=== PATIENT | female | born 1985 | race Caucasian/White ===

== ENCOUNTER 2020-10-02 15:46 | Observation (INO) | payer OTHER, SELFPAY ==
[2020-10-02] VITALS (7 sets, daily range): BP systolic 125–143; BP diastolic 71–87; PULSE 90–97; BMI 32.3
--- NOTE | 2020-10-02 15:41 | PC.NURSE ---
Addendum entered by Merlin Garner RN 10/02/20 15:45: Pt sees Dr. Linda and EDC 12/02/20. Original Note: Pt ambulatory to ED. Reports is 32 wks gestation, /M7. States while grocery shopping today had a sudden onset of dizziness/near syncopal, describes as room spinning, super lightheaded . States went home and ate and drank, laid down, then began vomiting, then he slammed into my belly and states has not felt the baby move since that time. Denies vag bleeding or d/c. Note pt has bulge to umbilicus, states has a dx hernia. Pt's VS 147/92, 100%, 113 HR, 97.2 S temp, 18 RR. Call to [facility] in OB, states to bring the patient to them. Pt placed in wheelchair and to OB.
[2020-10-02 16:44] LABS: Basophils Percent Auto 0.2 % (0.2-1.2); Eosinophils Absolute Auto 0.2 K/mm3 (0-0.3); Eosinophils Percent Auto 1.4 % (0-4.4); Hemoglobin 10.6 g/dL (12.0-15.0); Immature Granulocyte Absolute 0.05 K/mm3 (0.00-0.031); Immature Granulocyte Percent A 0.5 % (0-0.5); Lymphocytes Absolute Auto 1.93 K/mm3 (0.9-3.2); Lymphocytes Percent Auto 18.4 % (18.3-44.2); Mean Corpuscular HGB Conc 33.1 g/dl (32-36); Mean Corpuscular Hemoglobin 28.9 pg (26-34); Mean Corpuscular Volume 87.2 fl (80-100); Mean Platelet Volume 9.7 fl (7.4-10.4); Monocytes Absolute Auto 0.7 K/mm3 (0.1-0.6); Monocytes Percent Auto 6.4 % (2.6-8.5); Neutrophils Absolute Auto 7.7 K/mm3 (1.3-6.7); Neutrophils Percent Auto 73.1 % (45.5-73.1); Platelet Count Result 194 k/mm3 (150-375); Red Blood Count 3.67 M/mm3 (4.2-5.4); Red Cell Distribution Width 13.5 % (11.5-14.5); White Blood Count 10.5 K/mm3 (4.5-10.0)
--- NOTE | 2020-10-02 16:53 | OBADM ---
This patient, Love Lui, admitted to the OB room OB Post 117 for observation. Patient/family oriented to hospital policies and general routines including ID bracelet, bed and alarms, visiting hours, pain management, procedures, bathroom and other care routines, personal items, smoking policy, room service/diet, and visiting hours. Patient/Family are encouraged to report perceived risks to care and to ask questions if they do not understand what they are told or what they should do.
[2020-10-02 16:54] LABS: Albumin Level 3.3 g/dL (3.5-5.1); Alkaline Phosphatase 99 U/L (38-126); Anion Gap 5 mmol/L (8-16); Aspartate Amino Transferase 17 U/L (14-36); Bilirubin,Total 0.3 mg/dL (0.2-1.3); Blood Urea Nitrogen 2 mg/dL (7-17); Carbon Dioxide 24 mmol/L (22-30); Chloride 108 mmol/L (98-107); Estimated Glomerular Filt Rate > 60; Glucose 102 mg/dL (65-105); Potassium 3.8 mmol/L (3.4-5.0); Sodium 137 mmol/L (137-145); Uric Acid 4.8 mg/dL (2.5-7.5)
[2020-10-02 16:58] LABS: Add Urine Microscopic? NO; Appearance Urine Clear (Clear); Bilirubin Urine Negative (Negative); Blood Urine Negative (Negative); Color Urine Colorless (Yellow); Glucose Urine UA Negative (Negative); Ketones Urine Negative (Negative); Leukocyte Esterase Ur Negative LEU/UL (Negative); Nitrate Urine Negative (Negative); Protein Urine Negative (Negative); Urobilinogen Urine Negative mg/dL (<2.0)
[2020-10-02 17:00] LABS: Specific Grav Ur 1.002 (1.001-1.035)
[2020-10-02 17:08] LABS: Creatinine Urine 11.9 mg/dL; Total Protein Urine Random 19 mg/dL
[2020-10-02 17:23] LABS: Alanine Aminotransferase < 6 U/L (4-35)
--- NOTE | 2020-10-06 07:44 | PM.OBTRLD ---
OB - Triage/Final Diagnosis Visit Information Comments/Additional reasons for admission: I have assessed the risk for this patient, Love Lui, and determined that she would benefit from observation care. Evaluation Laboratory results: Laboratory Tests 10/02/20 10/02/20 10/02/20 16:28 16:28 16:36 WBC RBC Hgb Hct MCV MCH MCHC RDW Plt Count MPV Immature Gran % (Auto) Neut % (Auto) Lymph % (Auto) [place] % (Auto) Eos % (Auto) Baso % (Auto) Lymph # (Auto) [place] # (Auto) Eos # (Auto) Baso # (Auto) Abs Immat Gran (auto) Absolute Neuts (auto) Absolute Nucleated RBC Nucleated RBC % Sodium 137 Potassium 3.8 Chloride 108 H Carbon Dioxide 24 Anion Gap 5 L BUN 2 L Creatinine 0.50 L Estim Creat Clear Calc Not Reportable Estimated GFR > 60 Glucose 102 Uric Acid 4.8 Calcium 9.0 Total Bilirubin 0.3 AST 17 ALT < 6 Alkaline Phosphatase 99 Total Protein 6.0 L Albumin 3.3 L Urine Color Colorless Urine Appearance Clear Urine pH 7.0 Ur Specific [place] 1.002 Urine Protein Negative Urine Glucose (UA) Negative Urine Ketones Negative Ur Blood (Man) Negative Urine Nitrate Negative Urine Bilirubin Negative Urine Urobilinogen Negative Leukocyte Esterase Rfl Negative U Random Total Protein 19 Urine Creatinine 11.9 Protein/Creat Ratio 2 1.60 H 10/02/20 16:36 WBC 10.5 H RBC 3.67 L Hgb 10.6 L Hct 32.0 L MCV 87.2 MCH 28.9 MCHC 33.1 RDW 13.5 Plt Count 194 MPV 9.7 Immature Gran % (Auto) 0.5 Neut % (Auto) 73.1 Lymph % (Auto) 18.4 [place] % (Auto) 6.4 Eos % (Auto) 1.4 Baso % (Auto) 0.2 Lymph # (Auto) 1.93 [place] # (Auto) 0.7 H Eos # (Auto) 0.2 Baso # (Auto) 0.0 Abs Immat Gran (auto) 0.05 H Absolute Neuts (auto) 7.7 H Absolute Nucleated RBC 0.0 Nucleated RBC % 0.0 Sodium Potassium Chloride Carbon Dioxide Anion Gap BUN Creatinine Estim Creat Clear Calc Estimated GFR Glucose Uric Acid Calcium Total Bilirubin AST ALT Alkaline Phosphatase Total Protein Albumin Urine Color Urine Appearance Urine pH Ur Specific [place] Urine Protein Urine Glucose (UA) Urine Ketones Ur Blood (Man) Urine Nitrate Urine Bilirubin Urine Urobilinogen Leukocyte Esterase Rfl U Random Total Protein Urine Creatinine Protein/Creat Ratio 2 Final Diagnosis (1) PIH ( induced hypertension): Code(s): O13.9 - Gestational [-induced] hypertension without significant proteinuria, unspecified trimester Status: Acute
== END 2020-10-02 17:50 | disposition home or self-care (01) ==
PROVIDERS: Advanced Practice Midwife; Admitting Provider Obstetrics & Gynecology; Visit Provider Obstetrics & Gynecology
DX: O13.3 Gestational [pregnancy-induced] hypertension without significant proteinuria, third trimester (principal); Z3A.31 31 weeks gestation of pregnancy
CPT/HCPCS: 36415; 80053; 81003; 82570; 84156; 84550; 85025; G0378; G0379

== ENCOUNTER 2020-10-03 18:50 | Outpatient (NON) | payer OTHER, SELFPAY ==
[2020-10-03 18:58] VITALS: BMI 32.3
[2020-10-03 19:28] LABS: Collection Time Urine 24 HOURS
[2020-10-03 19:34] LABS: Total Volume 24 Hour Urine 3500 ml
[2020-10-03 19:35] LABS: Patient Weight 194 Lbs
[2020-10-03 19:36] LABS: Creatinine Urine 15.5 mg/dL
[2020-10-03 19:40] LABS: Specific Gravity Ur 1.005
[2020-10-03 22:40] LABS: Total Protein Urine 24 Hr 210 mg/24hr (0-149); Total Protein Urine Random < 6.0 mg/dL (0.0-11.9)
== END 2020-10-03 18:51 | disposition home or self-care (01) ==
LOC: ANHLAB 18:53
PROVIDERS: Visit Provider Obstetrics & Gynecology
DX: O13.9 Gestational [pregnancy-induced] hypertension without significant proteinuria, unspecified trimester (principal); Z3A.00 Weeks of gestation of pregnancy not specified
CPT/HCPCS: 81050; 82575; 84156

== ENCOUNTER 2020-10-04 16:18 | Outpatient (RCR) | payer OTHER, SELFPAY ==
[2020-10-04 16:43] LABS: Hematocrit 32.3 % (37.0-47.0); Hemoglobin 10.9 g/dL (12.0-15.0)
[2020-10-04 17:33] LABS: HIV 1/2 Ab P24 Ag Result Negative (Negative)
[2020-10-05 06:35] LABS: Rapid Plasma Reagin Non-Reactive (NonReactive)
[2020-10-05] MEDS: RHO(D) IMMUNE GLOBULIN 300 MCG/2 ML SYRINGE IM (13:23)
== END 2021-01-02 23:59 | disposition home or self-care (01) ==
LOC: ANHLAB 16:18
PROVIDERS: Visit Provider Obstetrics & Gynecology
DX: Z11.4 Encounter for screening for human immunodeficiency virus [HIV] (principal); Z29.13 Encounter for prophylactic Rho(D) immune globulin; O36.0190 Maternal care for anti-D [Rh] antibodies, unspecified trimester, not applicable or unspecified; Z3A.00 Weeks of gestation of pregnancy not specified
CPT/HCPCS: 36415; 85014; 85018; 85461; 86592; 86703; 90384; 96372; G0432; J2790

== ENCOUNTER 2020-10-22 10:41 | Outpatient (CLI) | payer OTHER, SELFPAY ==
[2020-10-22] VITALS (9 sets, daily range): BP systolic 115–148; BP diastolic 79–98; PULSE 81–97
[2020-10-22] MEDS: BETAMETHASONE SOD PHOS/ACETATE 30 MG/5 ML VIAL 12 MG IM (11:25)
[2020-10-22 11:48] LABS: Basophils Percent Auto 0.2 % (0.2-1.2); Eosinophils Absolute Auto 0.1 K/mm3 (0-0.3); Eosinophils Percent Auto 1.5 % (0-4.4); Hematocrit 31.6 % (37.0-47.0); Hemoglobin 10.3 g/dL (12.0-15.0); Immature Granulocyte Absolute 0.05 K/mm3 (0.00-0.031); Immature Granulocyte Percent A 0.5 % (0-0.5); Lymphocytes Absolute Auto 1.93 K/mm3 (0.9-3.2); Lymphocytes Percent Auto 20.2 % (18.3-44.2); Mean Corpuscular HGB Conc 32.6 g/dl (32-36); Mean Corpuscular Hemoglobin 27.7 pg (26-34); Mean Corpuscular Volume 84.9 fl (80-100); Monocytes Absolute Auto 0.5 K/mm3 (0.1-0.6); Monocytes Percent Auto 5.4 % (2.6-8.5); Neutrophils Absolute Auto 6.9 K/mm3 (1.3-6.7); Neutrophils Percent Auto 72.2 % (45.5-73.1); Platelet Count Result 231 k/mm3 (150-375); Red Blood Count 3.72 M/mm3 (4.2-5.4); Red Cell Distribution Width 13.6 % (11.5-14.5); White Blood Count 9.6 K/mm3 (4.5-10.0)
[2020-10-22 11:49] LABS: Add Urine Microscopic? NO; Appearance Urine Clear (Clear); Bilirubin Urine Negative (Negative); Blood Urine Negative (Negative); Color Urine Colorless (Yellow); Glucose Urine UA Negative (Negative); Ketones Urine Negative (Negative); Leukocyte Esterase Ur Negative LEU/UL (NEGATIVE); Nitrate Urine Negative (Negative); Protein Urine Negative (Negative); Urobilinogen Urine Negative mg/dL (<2.0)
[2020-10-22 11:54] LABS: Albumin Level 3.3 g/dL (3.5-5.1); Alkaline Phosphatase 120 U/L (38-126); Anion Gap 3 mmol/L (8-16); Aspartate Amino Transferase 18 U/L (14-36); Bilirubin,Total 0.4 mg/dL (0.2-1.3); Blood Urea Nitrogen 3 mg/dL (7-17); Calcium 9.1 mg/dL (8.4-10.2); Carbon Dioxide 23 mmol/L (22-30); Chloride 111 mmol/L (98-107); Estimated Glomerular Filt Rate > 60; Glucose 99 mg/dL (65-105); Potassium 3.7 mmol/L (3.4-5.0); Sodium 137 mmol/L (137-145); Uric Acid 5.4 mg/dL (2.5-7.5)
[2020-10-22 12:15] LABS: Alanine Aminotransferase < 6 U/L (4-35)
[2020-10-22 12:16] LABS: Specific Grav Ur 1.002 (1.001-1.035)
[2020-10-22 12:24] LABS: Creatinine Urine 8.8 mg/dL; Total Protein Urine Random 14 mg/dL; Ur Ttl Prot Creatinine Ratio 1.59 mg/mg (0-0.20)
--- NOTE | 2020-10-22 13:05 | PC.NURSE ---
Dr. Linda on unit. Lab results, BPs and tracing reviewed. May D/C home if Tylenol relieves headache.
[2020-10-22] MEDS: ACETAMINOPHEN 500 MG TABLET 1000 MG PO (13:13)
== END 2020-10-22 13:50 | disposition home or self-care (01) ==
LOC: ANHOBOP 10:47 → ANHOBPP 10:52
PROVIDERS: Visit Provider Obstetrics & Gynecology
DX: O13.9 Gestational [pregnancy-induced] hypertension without significant proteinuria, unspecified trimester (principal); Z3A.00 Weeks of gestation of pregnancy not specified
CPT/HCPCS: 36415; 59025; 80053; 81003; 82570; 84156; 84550; 85025; 87086; 96372; 99199; A9270; J0702

== ENCOUNTER 2020-10-23 12:06 | Outpatient (CLI) | payer OTHER, SELFPAY ==
[2020-10-23] MEDS: BETAMETHASONE SOD PHOS/ACETATE 30 MG/5 ML VIAL 12 MG IM (12:26)
== END 2020-10-23 12:07 | disposition home or self-care (01) ==
LOC: ANHOBOP 12:15
PROVIDERS: Visit Provider Obstetrics & Gynecology
DX: O16.9 Unspecified maternal hypertension, unspecified trimester (principal); Z3A.00 Weeks of gestation of pregnancy not specified
CPT/HCPCS: 96372; J0702

== ENCOUNTER 2020-10-24 17:50 | Outpatient (NON) | payer OTHER, SELFPAY ==
[2020-10-24 18:12] VITALS: BMI 33.2
[2020-10-24 19:16] LABS: Collection Time Urine 24 HOURS
[2020-10-24 19:22] LABS: Patient Weight 199 Lbs; Total Volume 24 Hour Urine 6600 ml
[2020-10-24 19:23] LABS: Specific Gravity Ur 1.001; Total Volume 24 Hour Urine 6600 ml
[2020-10-24 19:28] LABS: Creatinine Clearance Urine 57.2 ml/min (75-125); Creatinine Urine 7.1 mg/dL
[2020-10-24 22:05] LABS: Total Protein Urine 24 Hr 396 mg/24hr (0-149); Total Protein Urine Random < 6.0 mg/dL (0.0-11.9)
== END 2020-10-24 17:51 | disposition home or self-care (01) ==
LOC: ANHOBOP 18:03
PROVIDERS: Visit Provider Obstetrics & Gynecology
DX: O13.9 Gestational [pregnancy-induced] hypertension without significant proteinuria, unspecified trimester (principal); Z3A.00 Weeks of gestation of pregnancy not specified
CPT/HCPCS: 81050; 82575; 84156

== ENCOUNTER 2020-10-29 11:19 | Outpatient (CLI) | payer OTHER, SELFPAY ==
[2020-10-29] VITALS (9 sets, daily range): BP systolic 134–151; BP diastolic 80–99; PULSE 89–107
[2020-10-29 12:15] LABS: Basophils Percent Auto 0.3 % (0.2-1.2); Eosinophils Absolute Auto 0.2 K/mm3 (0-0.3); Eosinophils Percent Auto 1.4 % (0-4.4); Hematocrit 35.3 % (37.0-47.0); Hemoglobin 11.2 g/dL (12.0-15.0); Immature Granulocyte Absolute 0.09 K/mm3 (0.00-0.031); Immature Granulocyte Percent A 0.8 % (0-0.5); Lymphocytes Absolute Auto 2.67 K/mm3 (0.9-3.2); Lymphocytes Percent Auto 23.2 % (18.3-44.2); Mean Corpuscular HGB Conc 31.7 g/dl (32-36); Mean Corpuscular Hemoglobin 26.9 pg (26-34); Mean Corpuscular Volume 84.9 fl (80-100); Mean Platelet Volume 9.9 fl (7.4-10.4); Monocytes Absolute Auto 0.7 K/mm3 (0.1-0.6); Monocytes Percent Auto 6.3 % (2.6-8.5); Neutrophils Absolute Auto 7.9 K/mm3 (1.3-6.7); Platelet Count Result 269 k/mm3 (150-375); Red Blood Count 4.16 M/mm3 (4.2-5.4); Red Cell Distribution Width 13.8 % (11.5-14.5); White Blood Count 11.5 K/mm3 (4.5-10.0)
[2020-10-29 12:16] LABS: Add Urine Microscopic? NO; Appearance Urine Clear (Clear); Bilirubin Urine Negative (Negative); Blood Urine Negative (Negative); Color Urine Colorless (Yellow); Glucose Urine UA Negative (Negative); Ketones Urine Negative (Negative); Leukocyte Esterase Ur Negative LEU/UL (NEGATIVE); Nitrate Urine Negative (Negative); Protein Urine Negative (Negative); Urobilinogen Urine Negative mg/dL (<2.0)
[2020-10-29 12:26] LABS: Alanine Aminotransferase 7 U/L (4-35); Albumin Level 3.5 g/dL (3.5-5.1); Alkaline Phosphatase 145 U/L (38-126); Anion Gap 8 mmol/L (8-16); Aspartate Amino Transferase 21 U/L (14-36); Bilirubin,Total 0.7 mg/dL (0.2-1.3); Blood Urea Nitrogen 3 mg/dL (7-17); Calcium 9.3 mg/dL (8.4-10.2); Carbon Dioxide 24 mmol/L (22-30); Chloride 105 mmol/L (98-107); Estimated Glomerular Filt Rate > 60; Glucose 109 mg/dL (65-105); Potassium 4.2 mmol/L (3.4-5.0); Sodium 137 mmol/L (137-145); Uric Acid 5.8 mg/dL (2.5-7.5)
[2020-10-29 12:33] LABS: Specific Grav Ur 1.002 (1.001-1.035)
[2020-10-29 13:05] LABS: Creatinine Urine 13.1 mg/dL; Total Protein Urine Random 15 mg/dL; Ur Ttl Prot Creatinine Ratio 1.15 mg/mg (0-0.20)
--- NOTE | 2020-10-29 13:38 | PC.NURSE ---
1337--Report to Rosalinda Jensen CNM re: v.s., lab results and reactive NST. Orders to DC home with instructions on when to return.
== END 2020-10-29 13:45 | disposition home or self-care (01) ==
LOC: ANHOBOP 11:24 → ANHOBPP 11:25
PROVIDERS: Advanced Practice Midwife; Visit Provider Obstetrics & Gynecology
DX: O13.9 Gestational [pregnancy-induced] hypertension without significant proteinuria, unspecified trimester (principal); Z3A.00 Weeks of gestation of pregnancy not specified
CPT/HCPCS: 36415; 59025; 80053; 81003; 82570; 84156; 84550; 85025; 87086; 99199

== ENCOUNTER 2020-11-02 11:43 | Observation (INO) | payer OTHER, SELFPAY ==
[2020-11-02] VITALS (15 sets, daily range): BP systolic 129–156; BP diastolic 77–95; PULSE 87–150; TEMP 36.7–36.9; BMI 33.2
[2020-11-02 12:22] LABS: Basophils Percent Auto 0.2 % (0.2-1.2); Eosinophils Absolute Auto 0.1 K/mm3 (0-0.3); Eosinophils Percent Auto 0.9 % (0-4.4); Hematocrit 33.1 % (37.0-47.0); Hemoglobin 10.7 g/dL (12.0-15.0); Immature Granulocyte Absolute 0.07 K/mm3 (0.00-0.031); Immature Granulocyte Percent A 0.7 % (0-0.5); Lymphocytes Absolute Auto 2.35 K/mm3 (0.9-3.2); Mean Corpuscular HGB Conc 32.3 g/dl (32-36); Mean Corpuscular Hemoglobin 27.4 pg (26-34); Mean Corpuscular Volume 84.9 fl (80-100); Mean Platelet Volume 9.8 fl (7.4-10.4); Monocytes Absolute Auto 0.7 K/mm3 (0.1-0.6); Monocytes Percent Auto 6.9 % (2.6-8.5); Neutrophils Absolute Auto 6.2 K/mm3 (1.3-6.7); Neutrophils Percent Auto 66.3 % (45.5-73.1); Platelet Count Result 225 k/mm3 (150-375); White Blood Count 9.4 K/mm3 (4.5-10.0)
[2020-11-02 12:31] LABS: Creatinine Urine 7.4 mg/dL; Total Protein Urine Random 14 mg/dL; Ur Ttl Prot Creatinine Ratio 1.89 mg/mg (0-0.20)
[2020-11-02 12:33] LABS: Alanine Aminotransferase 6 U/L (4-35); Albumin Level 3.3 g/dL (3.5-5.1); Alkaline Phosphatase 136 U/L (38-126); Anion Gap 8 mmol/L (8-16); Aspartate Amino Transferase 20 U/L (14-36); Bilirubin,Total 0.3 mg/dL (0.2-1.3); Blood Urea Nitrogen 6 mg/dL (7-17); Calcium 9.1 mg/dL (8.4-10.2); Carbon Dioxide 18 mmol/L (22-30); Chloride 109 mmol/L (98-107); Estimated Glomerular Filt Rate > 60; Glucose 92 mg/dL (65-105); Potassium 4.1 mmol/L (3.4-5.0); Sodium 135 mmol/L (137-145)
--- NOTE | 2020-11-02 14:16 | OBADM ---
This patient, Love Lui, admitted to the OB room OB Post 116 for observation. Patient/family oriented to hospital policies and general routines including ID bracelet, bed and alarms, visiting hours, pain management, procedures, bathroom and other care routines, personal items, smoking policy, room service/diet, and visiting hours. Patient/Family are encouraged to report perceived risks to care and to ask questions if they do not understand what they are told or what they should do.
[2020-11-02 15:57] LABS: Glucose Point of Care 115 mg/dl (65-105)
--- NOTE | 2020-11-02 17:41 | PM.IMHP ---
H&P: HPI History of Present Illness Date/Time: 11/02/20 17:41 Chief Complaint: PreE Narrative: Pt is a -0-10-4 at 35.6 with known PReE with elevated BPs in office today, severe range. Already had BMTZ. Plan primary CS and tubal for history of shoulder dystocia. Meds Home Medications and Allergies Home Medications Medication Instructions Recorded Confirmed Type 1 tablet PO DAILY 10/02/20 History Allergies Allergy/AdvReac Type Severity Reaction Status Date / Time Penicillins Allergy Hives Verified 10/22/20 11:26 Vital Signs Vital Signs - 24 hr 11/02/20 12:03 11/02/20 12:15 11/02/20 12:30 Temperature 98.4 F Pulse Rate 97 96 91 Blood Pressure 129/77 138/95 H 144/94 H Blood Pressure [Left Arm] 11/02/20 12:45 11/02/20 13:02 11/02/20 13:15 Temperature Pulse Rate 87 94 99 Blood Pressure 141/86 H 149/86 H 136/93 H Blood Pressure [Left Arm] 11/02/20 13:30 11/02/20 15:02 11/02/20 17:22 Temperature 98.5 F Pulse Rate 93 90 98 Blood Pressure 131/88 156/93 H 135/88 Blood Pressure [Left Arm] 131/88 Exam Const: General: no acute distress Eyes: General: appearance normal, both eyes and all related structures Resp: Auscultation: clear to auscultation bilaterally Cardio: Rate: regular rate Rhythm: regular rhythm GI: GI Palp: Yes Soft to palpation H&P: Results Labs Labs: Short CBC 11/02/20 Range/Units 12:13 WBC 9.4 (4.5-10.0) K/mm3 Hgb 10.7 L (12.0-15.0) g/dL Hct 33.1 L (37.0-47.0) % Plt Count 225 (150-375) k/mm3 BMP 11/02/20 12:13 Sodium 135 L Potassium 4.1 Chloride 109 H Carbon Dioxide 18 L BUN 6 L Creatinine 0.50 L Glucose 92 Calcium 9.1 Liver Function 11/02/20 Range/Units 12:13 Total Bilirubin 0.3 (0.2-1.3) mg/dL AST 20 (14-36) U/L ALT 6 (4-35) U/L Alkaline Phosphatase 136 H (38-126) U/L Albumin 3.3 L (3.5-5.1) g/dL Assessment and Plan Assessment and plan (1) Pre-eclampsia: Code(s): O14.90 - Unspecified pre-eclampsia, unspecified trimester Status: Acute Additional Plan s/p BMTZ serial BPs- better since admission. PI labs wnl If severe BPs 6 hrs apart on bedrest or symptomatic or abnormal labs, will deliver now vs 37 weeks. FHT reassuring.
[2020-11-02] MEDS: ACETAMINOPHEN 500 MG TABLET 1000 MG PO (20:40)
[2020-11-03 03:02] VITALS: BP 147/99; PULSE 86
[2020-11-03 05:05] VITALS: BP 141/90; PULSE 73
--- NOTE | 2020-11-03 05:06 | PC.NURSE ---
pt denies seeing spots or floaters. pt has been able to sleep through the night.
[2020-11-03 07:27] VITALS: BP 147/96; PULSE 84
--- NOTE | 2020-11-03 07:40 | PC.NURSE ---
Dr. Linda at bedside. Plan of care discussed with pt.
--- NOTE | 2020-11-03 07:43 | P.PNOB_ITS ---
OB - PN: Subj Subjective Date/time seen: 11/03/20 07:43 Narrative: Had a COX yesterday, but resolved with tylenol. Rested some overnight. Feels well today. BPs 130s-150s/80s-90s. OB - PN: Obj Data Labs CBC & Chem 7: 11/02/20 12:13 11/02/20 12:13 Labs: Laboratory Results - last 24 hr 11/02/20 11/02/20 11/02/20 12:13 12:13 12:13 WBC 9.4 RBC 3.90 L Hgb 10.7 L Hct 33.1 L MCV 84.9 MCH 27.4 MCHC 32.3 RDW 14.0 Plt Count 225 MPV 9.8 Immature Gran % (Auto) 0.7 H Neut % (Auto) 66.3 Lymph % (Auto) 25.0 [place] % (Auto) 6.9 Eos % (Auto) 0.9 Baso % (Auto) 0.2 Lymph # (Auto) 2.35 [place] # (Auto) 0.7 H Eos # (Auto) 0.1 Baso # (Auto) 0.0 Abs Immat Gran (auto) 0.07 H Absolute Neuts (auto) 6.2 Absolute Nucleated RBC 0.0 Nucleated RBC % 0.0 Sodium 135 L Potassium 4.1 Chloride 109 H Carbon Dioxide 18 L Anion Gap 8 BUN 6 L Creatinine 0.50 L Estim Creat Clear Calc Not Reportable Estimated GFR > 60 Glucose 92 POC Capillary Glucose Uric Acid 5.0 Calcium 9.1 Total Bilirubin 0.3 AST 20 ALT 6 Alkaline Phosphatase 136 H Total Protein 7.0 Albumin 3.3 L U Random Total Protein Urine Creatinine Protein/Creat Ratio 2 11/02/20 11/02/20 12:14 15:50 WBC RBC Hgb Hct MCV MCH MCHC RDW Plt Count MPV Immature Gran % (Auto) Neut % (Auto) Lymph % (Auto) [place] % (Auto) Eos % (Auto) Baso % (Auto) Lymph # (Auto) [place] # (Auto) Eos # (Auto) Baso # (Auto) Abs Immat Gran (auto) Absolute Neuts (auto) Absolute Nucleated RBC Nucleated RBC % Sodium Potassium Chloride Carbon Dioxide Anion Gap BUN Creatinine Estim Creat Clear Calc Estimated GFR Glucose POC Capillary Glucose 115 H Uric Acid Calcium Total Bilirubin AST ALT Alkaline Phosphatase Total Protein Albumin U Random Total Protein 14 Urine Creatinine 7.4 Protein/Creat Ratio 2 1.89 H OB - PN A/P Plan Comments: 36.0 with mild PreE. BPs remain mild on bedrest Home today on bedrest. Follow up 2 days in office for testing and visit. Precautions given. NST prior to DC. Time Spent With Patient Time: Total time spent is greater than 50% in coordination of care (as documented) at patient's floor/unit and/or counseling patient: Exam Const: General: cooperative, no acute distress and alert
--- NOTE | 2020-11-03 07:47 | PM.OBDSVD ---
DS: Admitting Diagnosis Admitting Diagnosis Admitting Diagnosis: mild PreE at 35.6 DS: Discharge Diagnosis Discharge Diagnosis (1) Pre-eclampsia: Code(s): O14.90 - Unspecified pre-eclampsia, unspecified trimester Status: Acute OB - DS: Summary Hospital Course Hospital Course: Pt was admitted for known PreE with severe pressures in the office. Had a mild COX that resolved. BPS on bed rest were not severe. She was discharged home on modified bed rest with close monitoring. OB Procedures : NST, PIH Mgmt and Ultrasound OB Procedures Intrapartum: Other OB Procedures: : Other Time Spent with Patient Time attestation: Total time spent providing and/or coordinating discharge services: DS: Data Data Completed and Pending Labs on day of discharge: Labs from last 24 hours 11/02/20 11/02/20 11/02/20 15:50 12:14 12:13 WBC RBC Hgb Hct MCV MCH MCHC RDW Plt Count MPV Immature Gran % (Auto) Neut % (Auto) Lymph % (Auto) [place] % (Auto) Eos % (Auto) Baso % (Auto) Lymph # (Auto) [place] # (Auto) Eos # (Auto) Baso # (Auto) Abs Immat Gran (auto) Absolute Neuts (auto) Absolute Nucleated RBC Nucleated RBC % Sodium 135 L Potassium 4.1 Chloride 109 H Carbon Dioxide 18 L Anion Gap 8 BUN 6 L Creatinine 0.50 L Estim Creat Clear Calc Not Reportable Estimated GFR > 60 Glucose 92 POC Capillary Glucose 115 H Uric Acid Calcium 9.1 Total Bilirubin 0.3 AST 20 ALT 6 Alkaline Phosphatase 136 H Total Protein 7.0 Albumin 3.3 L U Random Total Protein 14 Urine Creatinine 7.4 Protein/Creat Ratio 2 1.89 H 11/02/20 11/02/20 12:13 12:13 WBC 9.4 RBC 3.90 L Hgb 10.7 L Hct 33.1 L MCV 84.9 MCH 27.4 MCHC 32.3 RDW 14.0 Plt Count 225 MPV 9.8 Immature Gran % (Auto) 0.7 H Neut % (Auto) 66.3 Lymph % (Auto) 25.0 [place] % (Auto) 6.9 Eos % (Auto) 0.9 Baso % (Auto) 0.2 Lymph # (Auto) 2.35 [place] # (Auto) 0.7 H Eos # (Auto) 0.1 Baso # (Auto) 0.0 Abs Immat Gran (auto) 0.07 H Absolute Neuts (auto) 6.2 Absolute Nucleated RBC 0.0 Nucleated RBC % 0.0 Sodium Potassium Chloride Carbon Dioxide Anion Gap BUN Creatinine Estim Creat Clear Calc Estimated GFR Glucose POC Capillary Glucose Uric Acid 5.0 Calcium Total Bilirubin AST ALT Alkaline Phosphatase Total Protein Albumin U Random Total Protein Urine Creatinine Protein/Creat Ratio 2 Discharge Plan Discharge Attending physician on discharge: Veronica Linad Discharging Clinician: Veronica Linda Anticipated Discharge Date/Time: 11/03/20 09:00 Patient Disposition: Home, Self-Care Activity: may shower and no straining Diet: as tolerated and gestational diabetic Patient Instructions: Antibiotic Form Stand Alone Forms: General Discharge Information Follow-up/Referrals: Veronica Linda MD [Physician] - (2 days) Discharge Medications: No Action ferrous sulfate 300 mg (60 mg iron) Tablet 300 mg PO DAILY RF: 0 28-800 mg-mcg Tablet 1 tablet PO DAILY RF: 0 Date of admission: 11/02/20 11:43 Primary Care Provider: PHYSICIAN,JAVA DEVELOPMENT MANAGER Admitting Provider: Veronica Linda Attending physician on admission: Veronica Linda Condition: Stable
[2020-11-03 07:53] VITALS: TEMP 36.1
== END 2020-11-03 09:00 | disposition home or self-care (01) ==
PROVIDERS: Admitting Provider Obstetrics & Gynecology; Visit Provider Obstetrics & Gynecology
DX: O14.03 Mild to moderate pre-eclampsia, third trimester (principal); Z3A.35 35 weeks gestation of pregnancy
CPT/HCPCS: 36415; 59025; 80053; 82570; 82948; 84156; 84550; 85025; A9270; G0378; G0379

== ENCOUNTER 2020-11-12 06:50 | Inpatient (IN) | payer OTHER, SELFPAY ==
[2020-11-12] VITALS (43 sets, daily range): BP systolic 119–161; BP diastolic 66–138; PULSE 73–140; RESP 12–19; TEMP 36.4–37.5; O2SAT 97–100; BMI 34.4
[2020-11-12 07:59] LABS: Basophils Percent Auto 0.2 % (0.2-1.2); Eosinophils Absolute Auto 0.1 K/mm3 (0-0.3); Eosinophils Percent Auto 1.2 % (0-4.4); Hematocrit 31.6 % (37.0-47.0); Hemoglobin 10.3 g/dL (12.0-15.0); Immature Granulocyte Absolute 0.05 K/mm3 (0.00-0.031); Immature Granulocyte Percent A 0.5 % (0-0.5); Lymphocytes Absolute Auto 2.12 K/mm3 (0.9-3.2); Lymphocytes Percent Auto 22.3 % (18.3-44.2); Mean Corpuscular HGB Conc 32.6 g/dl (32-36); Mean Corpuscular Hemoglobin 27.1 pg (26-34); Mean Corpuscular Volume 83.2 fl (80-100); Mean Platelet Volume 9.9 fl (7.4-10.4); Monocytes Absolute Auto 0.6 K/mm3 (0.1-0.6); Monocytes Percent Auto 6.1 % (2.6-8.5); Neutrophils Absolute Auto 6.6 K/mm3 (1.3-6.7); Neutrophils Percent Auto 69.7 % (45.5-73.1); Platelet Count Result 197 k/mm3 (150-375); Red Cell Distribution Width 14.1 % (11.5-14.5); White Blood Count 9.5 K/mm3 (4.5-10.0)
--- NOTE | 2020-11-12 08:06 | LDADM ---
This patient, Love Lui, was admitted to OB Post 115 on 11/12/20 at 06:50. Plans for labor, pain management and were discussed with patient. Patient/family oriented to hospital policies and general routines including ID bracelet, bed and alarms, visiting hours, pain management, procedures, bathroom and other care routines, personal items, smoking policy, room service/diet and guest tray routines, infant security routines, and visiting hours. Patient/Family are encouraged to report perceived risks to care and to ask questions if they do not understand what they are told or what they should do. See OBIX for further documentation.
[2020-11-12 08:09] LABS: Glucose Point of Care 84 mg/dl (65-105)
[2020-11-12] MEDS: CLINDAMYCIN 900 MG/D5W 50 ML 900 MG/50 ML PIGGYBACK 50 MG IVPB (08:16)
[2020-11-12] MEDS: LACTATED RINGERS 1,000 ML 125 ML IV CONT (08:33)
--- NOTE | 2020-11-12 08:39 | WPDANESEPPF ---
Anes - Initial Pre Proc Eval Procedure: Operation Date: 11/12/20 09:00 Proposed Procedures p Primary Section With Salpingectomy - Veronica Linda MD Date/Time: 11/12/20 08:39 Surgeon: Veronica Linda MD Pre Op Diagnosis: Patient Data Age: 35 Gender: F Height: 1.63 m Weight: 91 kg Last Vital Signs Pulse 93 11/12/20 08:31 BP 142/80 H 11/12/20 08:31 Allergies Allergy/AdvReac Type Severity Reaction Status Date / Time Penicillins Allergy Hives Verified 10/22/20 11:26 Home Medications Medication Instructions Recorded Confirmed Type 1 tablet PO DAILY 10/02/20 11/02/20 History ferrous sulfate 300 mg PO DAILY 11/02/20 11/02/20 History Laboratory Tests 11/12/20 11/12/20 11/12/20 07:50 07:51 08:01 WBC 9.5 K/mm3 K/mm3 (4.5-10.0) RBC 3.80 M/mm3 L M/mm3 (4.2-5.4) Hgb 10.3 g/dL L g/dL (12.0-15.0) Hct 31.6 % L % (37.0-47.0) MCV 83.2 fl fl (80-100) MCH 27.1 pg pg (26-34) MCHC 32.6 g/dl g/dl (32-36) RDW 14.1 % % (11.5-14.5) Plt Count 197 k/mm3 k/mm3 (150-375) MPV 9.9 fl fl (7.4-10.4) Immature Gran % (Auto) 0.5 % % (0-0.5) Neut % (Auto) 69.7 % % (45.5-73.1) Lymph % (Auto) 22.3 % % (18.3-44.2) [place] % (Auto) 6.1 % % (2.6-8.5) Eos % (Auto) 1.2 % % (0-4.4) Baso % (Auto) 0.2 % % (0.2-1.2) Lymph # (Auto) 2.12 K/mm3 K/mm3 (0.9-3.2) [place] # (Auto) 0.6 K/mm3 K/mm3 (0.1-0.6) Eos # (Auto) 0.1 K/mm3 K/mm3 (0-0.3) Baso # (Auto) 0.0 K/mm3 K/mm3 (0.0-0.1) Abs Immat Gran (auto) 0.05 K/mm3 H K/mm3 (0.00-0.031) Absolute Neuts (auto) 6.6 K/mm3 K/mm3 (1.3-6.7) Absolute Nucleated RBC 0.0 K/mm3 K/mm3 (0.0-0.012) Nucleated RBC % 0.0 % % (0.0-0.2) POC Capillary Glucose 84 mg/dl mg/dl (65-105) RPR Pending Patient hx anesthesia problems: none Family hx anesthesia problems: none PMFSH Social History Social History Smoking packs per day: 0.5 Smoking cigarettes per day: 10.0 Years smoked: 3 Smoking pack-years: 1.50 Smoking status: Never smoker Tobacco type: cigarettes Second hand tobacco smoke exposure: Yes (FOB smokes cigarettes) Substance use: former Gender identity (if verbalized by the patient): Female Sexual Orientation (if Verbalized by the Patient): Straight or Heterosexual Spiritual care concerns: No Anes - Eval Final PreProcedure Day of Procedure 11/12/20 08:39 Patient weight: obese Heart: regular rate and rhythm Lungs: clear to auscultation and normal air movement Airway: Mallampati scale class II Neurological: alert and oriented Last oral intake: >/= 8 hours ASA classification: III Emergent: no Anesthetic plan: proceed Anesthesia type and monitoring: regional spinal Informed Consent: The patient's anesthetic plan and its attendant risks and benefits were discussed with the patient/family/POA. Questions were solicited and answers provided to the satisfaction of the patient/family/POA.
--- NOTE | 2020-11-12 09:20 | PM.IMHP ---
H&P: HPI History of Present Illness Date/Time: 11/12/20 09:20 Chief Complaint: primary section Narrative: Love is a 35yo [id number] who presents for primary due to significant shoulder dystocia with her last delivery of an 8#12oz baby. She also wants salpingectomy. also complicated by a very large umbilical hernia, and mild preeclampsia diagnosed 2 weeks ago. She has been stable on bedrest with only mildly elevated BPs. She also has GDM. Had testing. Baby is LGA. Also minimal care with transfer to [place] at 30w. Review of Systems Review of Systems: All systems reviewed & are unremarkable except as noted in HPI and below PMFSH Social History Social History Smoking packs per day: 0.5 Smoking cigarettes per day: 10.0 Years smoked: 3 Smoking pack-years: 1.50 Smoking status: Never smoker Tobacco type: cigarettes Second hand tobacco smoke exposure: Yes (FOB smokes cigarettes) Substance use: former Gender identity (if verbalized by the patient): Female Sexual Orientation (if Verbalized by the Patient): Straight or Heterosexual Spiritual care concerns: No Meds Home Medications and Allergies Home Medications Medication Instructions Recorded Confirmed Type 1 tablet PO DAILY 10/02/20 11/02/20 History ferrous sulfate 300 mg PO DAILY 11/02/20 11/02/20 History Allergies Allergy/AdvReac Type Severity Reaction Status Date / Time Penicillins Allergy Hives Verified 10/22/20 11:26 Vital Signs Vital Signs - 24 hr 11/12/20 07:57 11/12/20 08:16 11/12/20 08:31 Pulse Rate 92 88 93 Blood Pressure 145/89 H 152/92 H 142/80 H 11/12/20 08:46 Pulse Rate 91 Blood Pressure 137/86 Exam Const: General: no acute distress Resp: Effort & Inspection: normal respiratory effort Auscultation: clear to auscultation bilaterally Cardio: Rate: regular rate Rhythm: regular rhythm GI: GI Palp: Yes Soft to palpation Extrem: General: normal to inspection H&P: Results Labs Labs: Short CBC 11/12/20 Range/Units 07:50 WBC 9.5 (4.5-10.0) K/mm3 Hgb 10.3 L (12.0-15.0) g/dL Hct 31.6 L (37.0-47.0) % Plt Count 197 (150-375) k/mm3 Assessment and Plan Additional Plan Plan primary CS for history of shoulder dystocia and LGA baby Discussed RBA, pt consented, all questions answered. magnesium for 24 hours after delivery for mild PreE. will proceed.
--- NOTE | 2020-11-12 09:28 | P.PCNOB_ITS ---
OB - Delivery Note Procedure Delivery date: 11/12/20 Procedure: Procedures Operation Date: 11/12/20 09:00 <No data on this case meets the specified criteria> Primary Low TRansverse Section and bilateral salpingectomy events: Pre-Eclampsia Intrapartal events: None Route of delivery: Specimen: Yes (placenta) Quantitative Blood Loss (ml): 795 Anesthesia type: Spinal Disposition: floor Complications: none Narrative: The patient was taken to the OR and received spinal anesthesia. She was placed in dorsal supine position with left lateral tilt. SCDs and lombardo were placed. She was prepped and draped in the normal sterile fashion. A Pfannensteil skin incision was made and carried through to the underlying layer of fascia. The fascia was incised in the midline and then extended laterally using Hairston scissors. The muscles were in the midline and the peritoneum was entered bluntly. The peritoneal incision was extended inferiorly and superiorly with care to avoid the bladder. The bladder blade was then inserted, the vesicouterine peritoneum was grasped, incised with Metzenbaum scissors, and a bladder flap created. The bladder blade was reinserted. A low transverse uterine incision was made with a scalpel and extended bluntly. AROM was performed and fluid was noted to be clear. The head was delivered, followed by the remainder of the baby. The baby's oropharynx was suctioned. After 30 seconds, the cord was clamped and cut and the infant was handed off. Cord blood was obtained and the placenta was then removed manually. The uterus was exteriorized. A moist lap sponge was used to curette the endometrium. The uterine incision was then closed with one layer of 0-Vicryl in a running, locking fashion. Good hemostasis was noted. Following this attention was turned to her tubes. THe left tube was elevated using a [place] and removed by sequentially cauterizing and cutting using the Ligasure. Similarly the right tube was removed in similar fashion. The posterior cul de sac was irrigated with normal saline and cleared of all clot and debris. The uterus was returned to the abdomen. Both lateral gutters were then irrigated. The rectus muscles were inspected and found to be hemostatic. The fascia was reapproximated using 0-Vicryl in running fashion. The subcutaneous tissue was irrigated with normal saline and made hemostatic with Bovie electrocautery. The subcutaneous tissue was reapproximated with a layer of running 2-0 plain gut. The skin was then closed with 4-0 Vicryl in a subcuticular fashion. Steri strips and a bandage were applied. The uterus was evacuated. The patient tolerated the procedure very well. All counts were correct. She was taken to the recovery room in good condition. Baby Date of : 11/12/20 Time of : 10:03 Weeks of gestation at delivery: 37 Infant gender: Male Weight (pounds): 7 Weight (ounces): 10 presentation: vertex Placenta delivery description: Manual Removal cord vessel description: 3 Vessels, Nuchal Cord and Delayed Cord Clamping score one minute: 8 score five minutes: 9
[2020-11-12 11:07] LABS: Rapid Plasma Reagin Non-Reactive (NonReactive)
[2020-11-12] MEDS: diphenhydrAMINE HCl INJ 50 MG/ML VIAL 25 MG IV PUSH (11:26)
[2020-11-12] MEDS: MAGNESIUM SULF 4 GM/WATER100ML 4 GM/100 ML BAG IVPB (12:02)
[2020-11-12] MEDS: OXYTOCIN 30 UNITS/NS 500 ML 30 UNITS/500 ML BAG 125 UNITS IV CONT (12:02)
[2020-11-12] MEDS: MAGNESIUM SULF 20GM/WATER500ML 500 ML 50 MG IV CONT ×2 (12:58→21:58)
[2020-11-12] MEDS: DEXTROSE 5%/0.45% SOD CHL 1,000 ML 125 ML IV CONT (17:46)
[2020-11-12] MEDS: KETOROLAC 30 MG/ML VIAL (*BKC) IV PUSH (17:47)
[2020-11-12] MEDS: SIMETHICONE 80 MG TAB.CHEW PO (17:47)
--- NOTE | 2020-11-12 18:47 | PC.NURSE ---
Patient transferred to post room # 286 per stretcher. Support person present. Oriented to unit, room, information board, rooming in, admission packet and security measures. Patient verbalizes understanding.
[2020-11-13] VITALS: BP 141/85; PULSE 94; RESP 16; TEMP 36.2; O2SAT 100
[2020-11-13] MEDS: HYDROcodone/acetaminophen (*CRX) 5-325 MG TABLET 1 TAB PO ×3 (00:52→15:20)
[2020-11-13] MEDS: IBUPROFEN 600 MG TABLET PO ×4 (00:52→20:47)
[2020-11-13 04:30] VITALS: BP 149/82; PULSE 88; RESP 16; TEMP 35.8; O2SAT 100
[2020-11-13 05:41] LABS: Basophils Percent Auto 0.3 % (0.2-1.2); Eosinophils Absolute Auto 0.1 K/mm3 (0-0.3); Eosinophils Percent Auto 1.3 % (0-4.4); Hematocrit 26.6 % (37.0-47.0); Hemoglobin 8.4 g/dL (12.0-15.0); Immature Granulocyte Absolute 0.04 K/mm3 (0.00-0.031); Immature Granulocyte Percent A 0.5 % (0-0.5); Lymphocytes Absolute Auto 1.67 K/mm3 (0.9-3.2); Lymphocytes Percent Auto 21.6 % (18.3-44.2); Mean Corpuscular HGB Conc 31.6 g/dl (32-36); Mean Corpuscular Hemoglobin 26.7 pg (26-34); Mean Corpuscular Volume 84.4 fl (80-100); Mean Platelet Volume 10.3 fl (7.4-10.4); Monocytes Absolute Auto 0.5 K/mm3 (0.1-0.6); Monocytes Percent Auto 6.6 % (2.6-8.5); Neutrophils Absolute Auto 5.4 K/mm3 (1.3-6.7); Neutrophils Percent Auto 69.7 % (45.5-73.1); Platelet Count Result 178 k/mm3 (150-375); Red Blood Count 3.15 M/mm3 (4.2-5.4); Red Cell Distribution Width 14.2 % (11.5-14.5); White Blood Count 7.7 K/mm3 (4.5-10.0)
[2020-11-13] MEDS: LACTATED RINGERS 1,000 ML 999 ML IV CONT (06:00)
[2020-11-13 08:00] VITALS: BP 146/92; PULSE 75; PULSE 88; RESP 16; RESP 20; TEMP 36.4; O2SAT 100
--- NOTE | 2020-11-13 09:16 | WPDANLDPN2 ---
Anes-Prog Note L&D Date/Time: 11/13/20 09:16 Comfortable throughout: section Neuraxial method: spinal Epidural/Spinal procedure site: clean & non-tender Neuro status: Neuro function grossly intact. Cardiovascular status: normal Respiratory status: normal Airway patency: baseline Mental status: baseline Post-Op hydration status: normal Vital Signs: Last Vital Signs Temp 35.8 C L 11/13/20 04:30 Pulse 88 11/13/20 04:30 Resp 16 11/13/20 04:30 BP 149/82 H 11/13/20 04:30 Pulse Ox 100 11/13/20 04:30 Pain score (VAS): 0 I/O: Intake & Output 11/12/20 11/13/20 11/13/20 23:59 07:59 15:59 Intake Total 3300 2400 Output Total 4550 6700 Balance -1250 -4300 Post-procedural complaints: none Patient feedback: Patient satisfied with anesthetic care.
--- NOTE | 2020-11-13 09:17 | WPDANLDNPN2 ---
Anes-Prog Note L&D-Neuraxial Date/Time: 11/13/20 09:17 Neuraxial medications: intrathecal PF morphine Opiod-related complaints: none Patient feedback: Patient satisfied with post-operative pain management.
--- NOTE | 2020-11-13 09:30 | P.PNOB_ITS ---
OB - PN: Subj Subjective Date/time seen: 11/13/20 09:30 Patient comments: no complaints baby status: doing well OB - PN: Obj Data Labs CBC & Chem 7: 11/13/20 04:59 Labs: Laboratory Results - last 24 hr 11/12/20 11/13/20 11/13/20 07:51 04:59 04:59 WBC 7.7 RBC 3.15 L Hgb 8.4 L Hct 26.6 L MCV 84.4 MCH 26.7 MCHC 31.6 L RDW 14.2 Plt Count 178 MPV 10.3 Immature Gran % (Auto) 0.5 Neut % (Auto) 69.7 Lymph % (Auto) 21.6 [place] % (Auto) 6.6 Eos % (Auto) 1.3 Baso % (Auto) 0.3 Lymph # (Auto) 1.67 [place] # (Auto) 0.5 Eos # (Auto) 0.1 Baso # (Auto) 0.0 Abs Immat Gran (auto) 0.04 H Absolute Neuts (auto) 5.4 Absolute Nucleated RBC 0.0 Nucleated RBC % 0.0 RPR Non-reactive Blood Type A Negative Antibody Screen TNP Screen Negative Baby's Blood Type A pos Baby's SANDY Negative Doses of RhIg Required 1 OB - PN A/P Plan day: 1 Plan: routine care Comments: discontinue magnesium sulfate at 24 hours Time Spent With Patient Time: Total time spent is greater than 50% in coordination of care (as documented) at patient's floor/unit and/or counseling patient: Review of Systems Review of Systems: All systems reviewed & are unremarkable except as noted in HPI and below Exam Narrative: Exam Narrative: incision CDI Const: General: cooperative
[2020-11-13] MEDS: SIMETHICONE 80 MG TAB.CHEW PO ×2 (10:16→15:21)
[2020-11-13] MEDS: HYDROcodone/acetaminophen (*CRX) 10-325 MG TABLET 1 TAB PO ×2 (10:16→20:46)
[2020-11-13] MEDS: DOCUSATE SODIUM 100 MG CAPSULE PO ×2 (10:17→16:24)
[2020-11-13] MEDS: MULTIVIT/MIN/PREN/FOL AC/IRON TABLET 1 TAB PO (10:17)
[2020-11-13] MEDS: POLYSACCHARIDE IRON COMPLEX 150 MG CAPSULE PO ×2 (10:17→16:24)
[2020-11-13 12:45] VITALS: BP 133/90; PULSE 75; PULSE 78; RESP 20; TEMP 36.5; O2SAT 100
[2020-11-13 16:30] VITALS: PULSE 78; RESP 20; O2SAT 100
[2020-11-13 20:40] VITALS: BP 146/91; PULSE 86; RESP 16; TEMP 36.5; O2SAT 100
[2020-11-14 00:20] VITALS: BP 139/92; PULSE 89
[2020-11-14] MEDS: HYDROcodone/acetaminophen (*CRX) 10-325 MG TABLET 1 TAB PO ×2 (00:20→05:25)
[2020-11-14 05:20] VITALS: BP 136/79; PULSE 79
[2020-11-14] MEDS: IBUPROFEN 600 MG TABLET PO ×3 (05:25→16:36)
[2020-11-14 08:00] VITALS: PULSE 79; RESP 16; O2SAT 100
--- NOTE | 2020-11-14 10:31 | PM.OBPNVD ---
OB - PN: Subj Subjective Date/time seen: 11/14/20 10:31 Patient comments: no complaints baby status: doing well OB - PN: Obj Data Labs CBC & Chem 7: 11/13/20 04:59 Labs: Laboratory Results - last 24 hr 11/13/20 04:59 Blood Type A Negative Antibody Screen TNP Screen Negative Baby's Blood Type A pos Baby's SANDY Negative Doses of RhIg Required 1 OB - PN A/P Plan Plan: routine care Time Spent With Patient Time: Total time spent is greater than 50% in coordination of care (as documented) at patient's floor/unit and/or counseling patient: Review of Systems Review of Systems: All systems reviewed & are unremarkable except as noted in HPI and below Exam Narrative: Exam Narrative: incision CDI Const: General: cooperative Orientation/consciousness: patient oriented x3 Psych: Attitude: cooperative Thought process: Normal thought process present Thought content: Yes Normal thought content present
[2020-11-14] MEDS: HYDROcodone/acetaminophen (*CRX) 5-325 MG TABLET 1 TAB PO ×2 (10:37→16:37)
[2020-11-14] MEDS: SIMETHICONE 80 MG TAB.CHEW PO ×2 (10:38→16:37)
[2020-11-14] MEDS: DOCUSATE SODIUM 100 MG CAPSULE PO ×2 (10:38→16:37)
[2020-11-14] MEDS: POLYSACCHARIDE IRON COMPLEX 150 MG CAPSULE PO ×2 (10:38→16:37)
[2020-11-14 11:00] VITALS: BP 125/85; PULSE 70; RESP 20; TEMP 36.6
[2020-11-14 14:10] VITALS: BP 140/83; PULSE 72; RESP 20; TEMP 37
[2020-11-14 17:45] VITALS: BP 135/85; PULSE 70; RESP 20; TEMP 36.7
--- NOTE | 2020-11-17 07:22 | PM.OBDSVD ---
DS: Admitting Diagnosis Admitting Diagnosis Admitting Diagnosis: primary OB - DS: Summary OB Procedures : None OB Procedures Intrapartum: OB Procedures: : None Peripartum Data Procedures: Procedures Operation Date: 11/12/20 09:00 Actual Procedure Side Surgeon p Primary Section With Salpingectomy Bilateral Veronica Linda MD Time Spent with Patient Time attestation: Total time spent providing and/or coordinating discharge services: DS: Data Data Completed and Pending Pending studies at discharge: Pending at discharge 11/12/20 10:04 Surgical [PTH] Routine Surgical [PTH] Routine Surgical [PTH] Routine Discharge Plan Discharge Consulting providers: Stefano Gunter ; Ghada Jensen Discharging Clinician: Ghada Jensen Patient Disposition: Home, Self-Care Activity: no straining, may drive after 2 weeks, as tolerated and pelvic rest Diet: regular Discharge Instructions: Education: Mom and Baby Guide Given to: Mother Follow-Up: Call your delivering provider's office for an appointment to be seen in: 1 Week Mom and baby should come to the [facility] for the follow-up appointment. Appointment Date/Time: November 17, 2020 at 9:00 am What to expect at your follow-up visit: Blood Pressure Check Physical Assessment Call [phone] if you are unable to keep your appointment time. BREAST CARE: * Wear a snug supportive bra. * For engorgement discomfort: Bottle Feeding: * May apply ice packs ABDOMINAL INCISION: (if applicable) * Allow incision to air dry * Do NOT use lotions for powders on your incision * When showering, allow soap and water to run over the incision, but do not wash incision EPISIOTOMY/PERINEAL CARE: * Until bleeding stops, use your loni bottle after urinating * Change your pad frequently throughout the day * No tub baths until seen by your physician - You may shower ACTIVITY: * Rest as much as possible. * Do not exercise or lift anything heavier than your baby (such as laundry or other children.) * Avoid stairs or driving as much as possible. * Do not put anything into the vagina. No douching, tampons, or sexual activity until seen by physician. NOTIFY PHYSICIAN IF YOU HAVE ANY QUESTIONS OR IF ANY OF THE FOLLOWING SYMPTOMS OCCUR: * If your incision becomes red, swollen, or more painful than what you have experienced in the hospital. * If your vaginal bleeding becomes foul smelling. * If your vaginal bleeding becomes more heavy than a period or if your bleeding changes from pink to bright red. However, you may pass an occasional walnut-sized clot once or twice for the first week . * If you experience a sharp, shooting pain in your calves. * If you discover a hard, reddened area on your breast or if you experience flu-like symptoms. DIET: * Eat regular, well-balanced meals. * Drink plenty of fluids daily. Patient Instructions: (DC) Stand Alone Forms: General Discharge Information Follow-up/Referrals: Ghada Jensen CNM [Certified Nurse Oil Well Service Operator] - Discharge Medications: New ibuprofen 600 mg Tablet 600 mg PO Q6H PRN (Reason: Cramping) Qty: 30 RF: 0 hydrocodone-acetaminophen 5-325 mg Tablet 1 tablet PO Q3H PRN (Reason: Moderate Pain (4-6)) Qty: 20 RF: 0 Continued ferrous sulfate 300 mg (60 mg iron) Tablet 300 mg PO DAILY RF: 0 28-800 mg-mcg Tablet 1 tablet PO DAILY RF: 0 Date of admission: 11/12/20 06:50 Primary Care Provider: PHYSICIAN,HAND LAUNDERER Admitting Provider: Veronica Linda Attending physician on admission: Veronica Linda Condition: Stable
--- NOTE | 2020-11-17 07:22 | PM.OBDSVD ---
DS: Admitting Diagnosis Admitting Diagnosis Admitting Diagnosis: primary OB - DS: Summary OB Procedures : None OB Procedures Intrapartum: OB Procedures: : None Peripartum Data Procedures: Procedures Operation Date: 11/12/20 09:00 Actual Procedure Side Surgeon p Primary Section With Salpingectomy Bilateral Veronica Linda MD Time Spent with Patient Time attestation: Total time spent providing and/or coordinating discharge services: DS: Data Data Completed and Pending Pending studies at discharge: Pending at discharge 11/12/20 10:04 Surgical [PTH] Routine Surgical [PTH] Routine Surgical [PTH] Routine Discharge Plan Discharge Consulting providers: Stefano Gunter ; Ghada Jensen Discharging Clinician: Ghada Jensen Patient Disposition: Home, Self-Care Activity: no straining, may drive after 2 weeks, as tolerated and pelvic rest Diet: regular Discharge Instructions: Education: Mom and Baby Guide Given to: Mother Follow-Up: Call your delivering provider's office for an appointment to be seen in: 1 Week Mom and baby should come to the [facility] for the follow-up appointment. Appointment Date/Time: November 17, 2020 at 9:00 am What to expect at your follow-up visit: Blood Pressure Check Physical Assessment Call [phone] if you are unable to keep your appointment time. BREAST CARE: * Wear a snug supportive bra. * For engorgement discomfort: Bottle Feeding: * May apply ice packs ABDOMINAL INCISION: (if applicable) * Allow incision to air dry * Do NOT use lotions for powders on your incision * When showering, allow soap and water to run over the incision, but do not wash incision EPISIOTOMY/PERINEAL CARE: * Until bleeding stops, use your loni bottle after urinating * Change your pad frequently throughout the day * No tub baths until seen by your physician - You may shower ACTIVITY: * Rest as much as possible. * Do not exercise or lift anything heavier than your baby (such as laundry or other children.) * Avoid stairs or driving as much as possible. * Do not put anything into the vagina. No douching, tampons, or sexual activity until seen by physician. NOTIFY PHYSICIAN IF YOU HAVE ANY QUESTIONS OR IF ANY OF THE FOLLOWING SYMPTOMS OCCUR: * If your incision becomes red, swollen, or more painful than what you have experienced in the hospital. * If your vaginal bleeding becomes foul smelling. * If your vaginal bleeding becomes more heavy than a period or if your bleeding changes from pink to bright red. However, you may pass an occasional walnut-sized clot once or twice for the first week . * If you experience a sharp, shooting pain in your calves. * If you discover a hard, reddened area on your breast or if you experience flu-like symptoms. DIET: * Eat regular, well-balanced meals. * Drink plenty of fluids daily. Patient Instructions: (DC) Stand Alone Forms: General Discharge Information Follow-up/Referrals: Ghada Jensen CNM [Certified Nurse Roving Or Yarn Color Checker] - Discharge Medications: New ibuprofen 600 mg Tablet 600 mg PO Q6H PRN (Reason: Cramping) Qty: 30 RF: 0 hydrocodone-acetaminophen 5-325 mg Tablet 1 tablet PO Q3H PRN (Reason: Moderate Pain (4-6)) Qty: 20 RF: 0 Continued ferrous sulfate 300 mg (60 mg iron) Tablet 300 mg PO DAILY RF: 0 28-800 mg-mcg Tablet 1 tablet PO DAILY RF: 0 Date of admission: 11/12/20 06:50 Primary Care Provider: PHYSICIAN,MEDIA CENTER DIRECTOR [employer]CHOOL Admitting Provider: Veronica Linda Attending physician on admission: Veronica Linda Condition: Stable
--- NOTE | 2020-11-29 14:17 | PC.NURSE ---
Late entry- 11/13/20 1630 RHogam given IM in left deltoid muscle.
== END 2020-11-14 18:52 | disposition home or self-care (01) | DRG 540 ==
LOC: ANHOBPP 07:24 → ANHLDR 11:17 → ANHOB2 13:35
PROVIDERS: Admitting Provider Obstetrics & Gynecology; Visit Provider Obstetrics & Gynecology
PROC: 10D00Z1 Extraction of Products of Conception, Low, Open Approach (ICD-10-PCS; CPT 59514; principal; 2020-11-12 09:00)
DX: O14.04 Mild to moderate pre-eclampsia, complicating childbirth (principal); O24.429 Gestational diabetes mellitus in childbirth, unspecified control; O36.63X0 Maternal care for excessive fetal growth, third trimester, not applicable or unspecified; Z3A.37 37 weeks gestation of pregnancy; Z37.0 Single live birth; Z30.2 Encounter for sterilization
CPT/HCPCS: 36415; 82948; 85025; 85461; 86592; 86850; 86900; 86901; 88302; 88307; 90384; A9270; J0131; J1200; J1580; J1885; J2274; J2370; J2405; J2590; J2790; J3475; J7120